=== PATIENT | female | born 1950 ===

== ENCOUNTER 2024-10-24 17:44 | Emergency (ER) | payer OTHER ==
[~2024-10-24] VITALS: Ht 170.2 cm; Wt 71.8 kg
[2024-10-24 17:47] VITALS: BP 164/80; PULSE 90; RESP 18; TEMP 97.9; O2SAT 99
== END 2024-10-24 21:38 | disposition left against medical advice (07) ==
LOC: EMS 17:44
DX: R22.0 Localized swelling, mass and lump, head (principal); Z53.21 Procedure and treatment not carried out due to patient leaving prior to being seen by health care provider